=== PATIENT | male | born 1970 | race Caucasian/White ===

== ENCOUNTER → 2021-03-10 | Day surgery (SDC) | payer OTHER ==
[~2021-03-10] MED LIST: LISINOPRIL10 MG PO; PANTOPRAZOLE SO40 MG PO; ROSUVASTATIN CA10 MG PO
== END | disposition home or self-care (01) ==
LOC: FAS 06:48
DX: Z12.11 Encounter for screening for malignant neoplasm of colon (principal); D12.6 Benign neoplasm of colon, unspecified; K21.9 Gastro-esophageal reflux disease without esophagitis; I10 Essential (primary) hypertension; E78.00 Pure hypercholesterolemia, unspecified; N42.9 Disorder of prostate, unspecified; Z80.0 Family history of malignant neoplasm of digestive organs; Z20.822 Contact with and (suspected) exposure to COVID-19; Z79.899 Other long term (current) drug therapy; Z82.49 Family history of ischemic heart disease and other diseases of the circulatory system
CPT/HCPCS: J2250; J2704; J7120